=== PATIENT | male | born 1950 | race Caucasian/White ===

== ENCOUNTER 2021-12-24 14:54 | Outpatient (CLI) | payer MEDICARE, BC, OTHER ==
[~2021-12-24 14:54] MED LIST: Iopamidol 370 76% 100 ML VIAL ONE
== END 2021-12-24 14:55 | disposition home or self-care (01) ==
LOC: CT 14:54
PROVIDERS: ATTEND Thoracic Surgery (Cardiothoracic Vascular Surgery)
DX: I70.213 Atherosclerosis of native arteries of extremities with intermittent claudication, bilateral legs (principal); I77.1 Stricture of artery
CPT/HCPCS: 75635; 82565; Q9967